=== PATIENT | female | born 1935 | race Caucasian/White ===

== ENCOUNTER 2017-08-30 15:09 | Observation (INO) | payer MEDICARE ==
[~2017-08-30] VITALS: Ht 157.5 cm; Wt 49.9 kg
[2017-08-30 16:46] LABS: BASOPHILS ABSOLUTE AUTO 0.07 K/mm3 (0.00-0.23); BASOPHILS PERCENT AUTO 1 % (0-2); EOSINOPHILS PERCENT AUTO 4 % (0-6); Hemoglobin 13.3 g/dL (11.5-16.0); IMMATURE GRAN ABSOLUTE AUTO 0.02 K/mm3 (0.00-0.10); IMMATURE GRAN PERCENT AUTO 0 % (0-1); LYMPHOCYTES ABSOLUTE AUTO 1.19 K/mm3 (0.84-5.20); LYMPHOCYTES PERCENT AUTO 14 % (21-46); MONOCYTES ABSOLUTE AUTO 1.02 K/mm3 (0.16-1.47); MONOCYTES PERCENT AUTO 12 % (4-13); Mean Corpuscular HGB 33.3 pg (26.0-34.0); Mean Corpuscular HGB Conc 33.3 g/dL (31.5-36.5); Mean Corpuscular Volume 100 fL (80-100); Mean Platelet Volume 9.3 fL (9.1-12.4); NEUTROPHILS ABSOLUTE AUTO 5.87 K/mm3 (1.96-9.15); NEUTROPHILS PERCENT AUTO 70 % (41-73); Platelet Count 287 K/mm3 (150-400); RDW Standard Deviation 47.5 fL (35.1-46.3); Red Blood Cell Count 3.99 M/mm3 (3.80-5.20); White Blood Cell Count 8.47 K/mm3 (4.00-11.30)
[2017-08-30 17:04] LABS: Alanine Aminotransfer (ALT/SGP 20 U/L (12-78); Albumin, Blood 3.8 g/dL (3.4-5.0); Albumin/Globulin Ratio 1.2 (0.8-1.8); Alk Phos 63 U/L (50-136); Anion Gap 8 mmol/L (6-16); Aspartate Aminotrans (AST/SGOT 23 U/L (12-37); Bilirubin, Total 0.7 mg/dL (0.1-1.0); Blood Urea Nitrogen 14 mg/dL (8-24); Bun/Creatinine Ratio 16.4 (12.0-20.0); CO2, Blood 27 mmol/L (21-32); Calcium, Blood 8.5 mg/dL (8.5-10.1); Chloride, Blood 98 mmol/L (98-108); Creatinine, Blood 0.85 mg/dL (0.40-1.00); Globulin, Blood 3.2 g/dL (2.2-4.0); Glomerular Filtration Rate >60 (60-); Glucose, Blood 76 mg/dL (70-99); Potassium, Blood 3.3 mmol/L (3.5-5.5); Sodium, Blood 133 mmol/L (136-145); Troponin I <0.015 ng/mL (0.000-0.040)
[2017-08-30] MEDS ORDERED: CLOB.05TO (18:43)
[2017-08-30] MEDS ORDERED: C Complex500 MG (18:43)
[2017-08-30] MEDS ORDERED: CYAN500 (18:43)
[2017-08-30] MEDS ORDERED: GABA300 PO (18:44)
[2017-08-30] MEDS ORDERED: LEVSOD50 PO (18:46)
[2017-08-30] MEDS ORDERED: LOSA50 (18:46)
[2017-08-30] MEDS ORDERED: HYDR1TAB94 PO (18:46)
[2017-08-30] MEDS ORDERED: MECL12.5 (18:47)
[2017-08-30] MEDS ORDERED: OXYB5ER (18:48)
[2017-08-30] MEDS ORDERED: SERT50 (18:48)
[2017-08-30] MEDS ORDERED: TAMS.4ER (18:49)
[2017-08-30] MEDS ORDERED: SIMV10 PO (18:49)
[2017-08-30] MEDS ORDERED: TRAM50 (18:50)
[2017-08-31 02:04] LABS: Hematocrit 40.3 % (33.0-51.0); Hemoglobin 13.4 g/dL (11.5-16.0); Mean Corpuscular HGB Conc 33.3 g/dL (31.5-36.5); Mean Corpuscular Volume 99 fL (80-100); Mean Platelet Volume 9.4 fL (9.1-12.4); Platelet Count 258 K/mm3 (150-400); RDW Standard Deviation 46.9 fL (35.1-46.3); Red Blood Cell Count 4.06 M/mm3 (3.80-5.20); White Blood Cell Count 10.26 K/mm3 (4.00-11.30)
[2017-08-31 02:30] LABS: Albumin, Blood 3.4 g/dL (3.4-5.0); Anion Gap 9 mmol/L (6-16); Blood Urea Nitrogen 18 mg/dL (8-24); CO2, Blood 23 mmol/L (21-32); Calcium, Blood 8.5 mg/dL (8.5-10.1); Chloride, Blood 101 mmol/L (98-108); Glomerular Filtration Rate 56 (60-); Glucose, Blood 91 mg/dL (70-99); Phosphorus, Blood 2.9 mg/dL (2.5-4.9); Potassium, Blood 3.6 mmol/L (3.5-5.5); Sodium, Blood 133 mmol/L (136-145)
[2017-08-31 02:31] LABS: CPK Creatine Kinase 105 U/L (26-193); Creatine Kinase MB 3.8 ng/mL (0.0-3.6); Creatine Kinase MB Index 3.6 (0.0-4.0); Troponin I <0.015 ng/mL (0.000-0.040)
[2017-08-31 09:52] LABS: Creatine Kinase MB 3.7 ng/mL (0.0-3.6); Troponin I <0.015 ng/mL (0.000-0.040)
[2017-08-31 10:21] LABS: CPK Creatine Kinase 87 U/L (26-193); Creatine Kinase MB Index 4.3 (0.0-4.0)
== END 2017-09-02 14:12 | disposition home or self-care (01) ==
LOC: ER 15:09 → MEDS 15:10 → ER 19:13 → MEDS 19:13 → ENPENDDIS 09-02 11:00 → MEDS 09-02 14:12
PROVIDERS: Emergency Medicine; Internal Medicine
DX: R55 Syncope and collapse (principal); S01.01XA Laceration without foreign body of scalp, initial encounter; G31.84 Mild cognitive impairment of uncertain or unknown etiology; I67.9 Cerebrovascular disease, unspecified; E87.6 Hypokalemia; E87.1 Hypo-osmolality and hyponatremia; I10 Essential (primary) hypertension; E03.9 Hypothyroidism, unspecified; E78.5 Hyperlipidemia, unspecified; G89.29 Other chronic pain; M54.9 Dorsalgia, unspecified; M41.9 Scoliosis, unspecified; Z96.641 Presence of right artificial hip joint; Z90.710 Acquired absence of both cervix and uterus; Z90.722 Acquired absence of ovaries, bilateral; Z85.3 Personal history of malignant neoplasm of breast; Z90.12 Acquired absence of left breast and nipple; Z98.41 Cataract extraction status, right eye; Z98.42 Cataract extraction status, left eye; Z96.1 Presence of intraocular lens; Z88.5 Allergy status to narcotic agent; Z79.899 Other long term (current) drug therapy; Z87.891 Personal history of nicotine dependence; W19.XXXA Unspecified fall, initial encounter
CPT/HCPCS: 12001; 36415; 70450; 71046; 80053; 80069; 82550; 82553; 84443; 84484; 85025; 85027; 92526; 92610; 93005; 93010; 93306; 93880; 96372; 99285; G0378; G8996; G8997; G8998; J1650; J3480; Q2038